=== PATIENT | male | born 1985 | race Caucasian/White ===

== ENCOUNTER 2016-09-30 10:15 | Emergency (ER) | payer SELFPAY ==
--- NOTE | 2016-09-30 11:24 | ED ---
Abdominal Pain/Male - HPI Summary HPI Summary: 31 male presents with complaints of LLQ abdominal pain and nausea/vomiting that has been going on for ~3 days since Friday09/27/16. States the pain and vomiting has seemed to decrease in intensity and amount however is still experiencing it. His last vomiting episode was around 4 am this morning. He has been eating and drinking but not able to keep everything down. Has not taken any medication. Denies blood in vomit and stool. No radiation of pain and describes it has LLQ dull and achey, worse when vomiting. Denies diarrhea however LBM was 09/27/16 and normal. Has not had a bowel movement since. Admits to feeling feverish over the weekend however has not had any since. Denies any other complaints at this time. No urinary or genitalia symptoms. Denies chest pain, SOB, dizziness and lightheadedness. Admits to eating take out on Friday. 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 No significant PMHx. - History of Current Complaint Chief Complaint: EDAbdPain Stated Complaint: NAUSEA/VOMITING Time Seen by Provider: 09/30/16 10:59 Hx Obtained From: Patient, Family/Shut Off Worker - Onset/Duration: Sudden Onset, Lasting Days - 3-4, Still Present - getting better Timing: Intermittent Severity Initially: Mild Severity Currently: Mild Pain Intensity: 2 Pain Scale Used: 0-10 Numeric Location: Discrete At: LLQ Radiates: No Character: Dull - aching Aggravating Factor(s): Nothing - vomiting Alleviating Factor(s): Nothing Associated Signs And Symptoms: Positive: Fever, Decreased Appetite, Nausea, Vomiting - Allergies/Home Medications Allergies/Adverse Reactions: Allergies Allergy/AdvReac Type Severity Reaction Status Date / Time No Known Allergies Allergy Verified 09/30/16 11:10 PMH/Surg Hx/FS Hx/Imm Hx Endocrine/Hematology History: Denies: Hx Diabetes Cardiovascular History: Denies: Hx Atrial Fibrillation, Hx Hypertension Respiratory History: Reports: Hx Asthma - Surgical History Surgery Procedure, Year, and Place: none - Immunization History Immunizations Up to Date: Yes Infectious Disease History: No Infectious Disease History: Denies: Traveled Outside the [place] in Last 30 Days - Family History Known Family History: Positive: Diabetes - mother - Social History Alcohol Use: None Substance Use Type: Reports: None Smoking Status (MU): Never Smoked Tobacco Review of Systems Constitutional: Negative Cardiovascular: Negative Respiratory: Negative Positive: Abdominal Pain, Vomiting, Nausea Genitourinary: Negative Musculoskeletal: Negative Skin: Negative Neurological: Negative All Other Systems Reviewed And Are Negative: Yes Physical Exam Triage Information Reviewed: Yes Vital Signs On Initial Exam: Initial Vitals Temp Pulse Resp BP Pulse Ox 97.4 F 64 17 129/80 100 09/30/16 10:19 09/30/16 10:19 09/30/16 10:19 09/30/16 10:19 09/30/16 10:19 Vital Signs Reviewed: Yes Appearance: Positive: Well-Appearing, No Pain Distress, Well-Nourished Skin: Positive: Warm, Skin Color Reflects Adequate Perfusion, Dry Head/Face: Positive: Normal Head/Face Inspection Eyes: Positive: Normal, Conjunctiva Clear ENT: Positive: Normal ENT inspection, Hearing grossly normal, Pharynx normal, TMs normal Dental: Negative: Cervical Lymphadenopathy Neck: Positive: Supple, Nontender, No Lymphadenopathy Respiratory/Lung Sounds: Positive: Clear to Auscultation, Breath Sounds Present , Wheezes - some diffuse minmal wheezing thoughout lung flores. Negative: Rales , Rhonchi Cardiovascular: Positive: Normal, RRR, Pulses are Symmetrical in both Upper and Lower Extremities. Negative: Murmur, Rub Abdomen Description: Positive: No Organomegaly, Soft, Other: - some mild discomfort/tenderness on palpation of LLQ and lower mid abdomen. negative psoas , obturator, rovsings and rebound. Negative: Bruit, CVA Tenderness (R), CVA Tenderness (L), Distended, Guarding, Hepatomegaly, Peritoneal Signs, Pulsatile Mass Bowel Sounds: Positive: Present Male Genital Exam: Positive: normal genitalia - per patient Musculoskeletal: Positive: Normal, Strength/ROM Intact Neurological: Positive: Normal, Sensory/Motor Intact, Alert, Oriented to Person Place, Time, Normal Gait Psychiatric: Positive: Normal, Affect/Mood Appropriate AVPU Assessment: Alert Diagnostics - Vital Signs Vital Signs Temp Pulse Resp BP Pulse Ox 09/30/16 11:07 52 98 09/30/16 11:06 98.2 F 55 18 131/75 98 09/30/16 11:05 131/75 09/30/16 10:19 97.4 F 64 17 129/80 100 - Laboratory Result Diagrams: 09/30/16 10:40 09/30/16 10:40 Lab Statement: Any lab studies that have been ordered have been reviewed, and results considered in the medical decision making process. - CT abd/pelvis CT Interpretation: No Acute Changes CT Interpretation Completed By: Radiologist Re-Evaluation - Re-Evaluation First Eval Re-Evaluation Time: 13:15 Change: Improved - hs relief from toradol, fluids and zofran, waiting for CT, is comfortable Second Eval Re-Evaluation Time: 15:00 Change: Improved - updated on lab and ct results. patient feeling better. has not vomited and was able to tolerate foods and contrast PO. due to results discussed d/c home and patient agrees Abdominal Pain Fem Course/Dx - Course Course Of Treatment: given toradol, zofran and fluids with improvement. CT obtained to rule out diverticulitis due to PE findings and HPI. Completely negative CT. CBC/CMP and U/A obtained. Possibly suffering froma gastroenteritis due to elevated WBC with left shift. lactic negative adn rest of labs unremarkable. Patient agrees to being d/c home and follow up with PCP/GI if symptoms persist. Aware of worsening signs and symptoms to watch out for and return if occur. D/c with zofran. Fluids and bland diet. Stool culture obtained and he was able to use bathroom and states he had loose stool/diarrhea. Able to tolerate po and no episodes of vomiting while in ED. Spoke with Dr Raygoza about d /c. - Diagnoses Differential Diagnosis/HQI/PQRI: Appendicitis, Constipation, Diverticulitis, Peptic Ulcer Disease, Ureteral Stone, Urinary Tract Infection, Other - gastroenteritis, acute nausea/vomiting Provider Diagnoses: Vomiting, Abdominal pain, LLQ Discharge - Discharge Plan Condition: Stable Disposition: HOME Prescriptions: Ondansetron TAB* [Zofran 4 MG Tab*] 4 mg PO Q6H PRN #10 tab PRN Reason: Nausea Patient Education Materials: Acute Nausea and Vomiting (ED), Abdominal Pain (ED ) Referrals: Non Staff,Doctor [Primary Care Provider] - Wilbur Uribe MD [Medical Doctor] - Additional Instructions: Take prescribed anti nausea medication to help with nausea/vomiting. Drink plenty of fluids and stick to a bland diet such as bananas, toast, applesauce and rice. If your symptoms continue or worsen please seek medical attention promptly. Follow up with PCP within the next 5-7 days.
[2016-09-30] MEDS ORDERED: Ondansetron INJ* 2 MG/ML VIAL IV ONE (11:34)
[2016-09-30] MEDS ORDERED: Ketorolac INJ* 30 MG/ML 1 ML VIAL IV ONE (11:34)
[2016-09-30 11:47] LABS: Hematocrit 44 % (42-52); Hemoglobin 15.2 g/dl (14.0-18.0); Mean Corpuscular HGB Conc 34 g/dl (31-36); Mean Corpuscular Hemoglobin 29 pg (27-31); Mean Corpuscular Volume 85 fL (80-94); Mean Platelet Volume 8 um3 (7.4-10.4); Red Blood Count 5.19 10^6/ul (4.0-5.4); Red Cell Distribution Width 14 % (10.5-15); White Blood Count 14.5 10^3/ul (3.5-10.8)
[2016-09-30] MEDS: NS 0.9% 1000 ML* 1,000 ML IV ONE (11:52)
[2016-09-30 11:59] LABS: ALT 55 U/L (7-52); AST 30 U/L (13-39); Albumin 4.3 g/dL (3.2-5.2); Alkaline Phosphatase 34 U/L (34-104); Anion Gap 7 mmol/L (2-11); BUN/Creatinine Ratio 14.1 (8-20); Blood Urea Nitrogen 11 mg/dL (6-24); C Reactive Protein < 1.00 mg/L (< 5.00); CO2 Carbon Dioxide 27 mmol/L (22-32); Calcium 9.4 mg/dL (8.6-10.3); Chloride 99 mmol/L (101-111); EGFR African American 150.3 (>60); EGFR Non-African American 116.9 (>60); Globulin 2.5 g/dL (2-4); Glucose 109 mg/dL (70-100); Lipase 11 U/L (11.0-82.0); Potassium 3.8 mmol/L (3.5-5.0); Sodium 133 mmol/L (133-145); Total Protein 6.8 g/dL (6.4-8.9)
[2016-09-30] MEDS ORDERED: Iohexol 300* (CONTRAST) 10 ML SDV IV ONE (13:29)
--- NOTE | 2016-09-30 14:47 | RAD ---
Indication: Left lower quadrant pain with vomiting. Contrast: Administered 138.9 ml of OMNIPAQUE 300 mgi/ml CT of the abdomen and pelvis was performed after oral and IV contrast administered. Coronal and sagittal reconstructed images were obtained. The lung bases demonstrate no pleural fluid, nodules or masses. Heart is of normal size without evidence of pericardial effusion. The liver is normal in size. No focal lesions or intrahepatic ductal dilatation is noted. The gallbladder demonstrates no calcified gallstones although the gallbladder is partially contracted. The spleen is normal in size. The pancreas demonstrates no mass or pancreatic duct dilatation. The common duct is not dilated. No adrenal lesions are noted. The kidneys demonstrate symmetric nephrograms without hydronephrosis. Aorta and inferior vena cava are unremarkable. No dilated loops of bowel are noted. CT of the pelvis demonstrates terminal ileum to be unremarkable. Contrast is noted in the colon. Appendix is normal. Urinary bladder is unremarkable. There is contrast in the descending colon and sigmoid colon with diverticula present. No definite evidence of diverticulitis is noted. IMPRESSION: NORMAL APPENDIX. NO ABNORMAL MASSES OR FLUID COLLECTIONS ARE NOTED. THE CHICKALOON BLADDER IS UNREMARKABLE.
[2016-09-30 14:51] LABS: Urine Bilirubin Negative (Negative); Urine Glucose Negative (Negative); Urine Nitrite Negative (Negative)
[2016-09-30 16:38] VITALS: BP 138/76
--- NOTE | 2016-10-02 18:40 | ED ---
Progress - Progress Note Progress Note: Stool cx (-) for shiga toxin 1&2. No med/tx plan changes at this time. Re-Evaluation - Re-Evaluation First Eval Re-Evaluation Time: 13:15 Change: Improved - hs relief from toradol, fluids and zofran, waiting for CT, is comfortable Second Eval Re-Evaluation Time: 15:00 Change: Improved - updated on lab and ct results. patient feeling better. has not vomited and was able to tolerate foods and contrast PO. due to results discussed d/c home and patient agrees Course/Dx - Course Course Of Treatment: given toradol, zofran and fluids with improvement. CT obtained to rule out diverticulitis due to PE findings and HPI. Completely negative CT. CBC/CMP and U/A obtained. Possibly suffering froma gastroenteritis due to elevated WBC with left shift. lactic negative adn rest of labs unremarkable. Patient agrees to being d/c home and follow up with PCP/GI if symptoms persist. Aware of worsening signs and symptoms to watch out for and return if occur. D/c with zofran. Fluids and bland diet. Stool culture obtained and he was able to use bathroom and states he had loose stool/diarrhea. Able to tolerate po and no episodes of vomiting while in ED. Spoke with Dr Raygoza about d /c. - Diagnoses Provider Diagnoses: Vomiting, Abdominal pain, LLQ
== END 2016-09-30 16:37 | disposition home or self-care (01) ==
LOC: ED 10:15
DX: R10.32 Left lower quadrant pain (principal); R11.2 Nausea with vomiting, unspecified; R50.9 Fever, unspecified
CPT/HCPCS: 36415; 74177; 80053; 81003; 83605; 83690; 85025; 86140; 87045; 87046; 87077; 87899; 96374; 96375; 99284; J1885; J2405; Q9967